=== PATIENT | male | born 1985 | race African-American/Black ===

== ENCOUNTER 2022-02-10 01:12 | Emergency (ER) | payer OTHER ==
[2022-02-10] MEDS ORDERED: Bacitracin Oint 1 GM U/D Packet TOP ONE (01:35)
[2022-02-10] MEDS ORDERED: Acetaminophen/HYDROcodone 325-10 MG Tab PO ONE (01:41)
[2022-02-10] MEDS: Diphtheria,Pertussis(Acell),Tetanus Vaccine 0.5 ML Syringe IM ONE ×2 (01:49→02:16)
== END 2022-02-10 02:05 | disposition home or self-care (01) ==
LOC: LL.ED 01:12
DX: S67.196A Crushing injury of right little finger, initial encounter (principal); S61.216A Laceration without foreign body of right little finger without damage to nail, initial encounter; W23.1XXA Caught, crushed, jammed, or pinched between stationary objects, initial encounter; Y99.0 Civilian activity done for income or pay
CPT/HCPCS: 73130-LT; 90715; 99283; A9270-GY